=== PATIENT | female | born 1990 | race Caucasian/White ===

== ENCOUNTER 2023-09-15 15:52 | Emergency (ER) | payer BC, SELFPAY ==
--- NOTE | 2023-09-15 16:03 | ED.URI ---
HPI - URI/Sore Throat General Chief Complaint: Upper Respiratory Infection Stated Complaint: sorethroat,bilateral ear pain Time Seen by Provider: 09/15/23 16:03 Source: patient Mode of arrival: ambulatory Limitations: no limitations History of Present Illness HPI Narrative: Opal is a 32-year-old female patient presenting to the clinic today with complaints of sore throat and bilateral ear pain x3 days. Has felt feverish with some chills. Denies any chest pain or shortness of breath. MD elicited complaint: sore throat and nasal congestion Related Data Allergies Allergy/AdvReac Type Severity Reaction Status Date / Time No Known Allergies Allergy Verified 09/15/23 16:30 Review of Systems Review of Systems: Pertinent positives per HPI. Patient denies any rash, headache, visual changes, dizziness, shortness of breath, chest pain, palpitations, nausea, vomiting, diarrhea, constipation, abdominal pain, or any urinary issues. [facility] Family History Family History Grandparent Diabetes mellitus Father Family history of malignant neoplasm Other Family history of throat cancer Social History Social History Smoking status: Never smoker Alcohol intake: current Comments At the time of my signature, I reviewed and agree with the nursing past medical, surgical, social, and family history. There is no relevant family history pertinent to the patient complaint. Exam Narrative: General: Well-developed, well nourished, in no apparent distress Head: Normocephalic, atraumatic Eyes: Pupils equally round and reactive to light bilaterally, EOM intact, sclera and conjunctive clear, no discharge, lids normal Ears: TMs intact and clear, ear canals clear, no drainage, grossly hearing normal. Nose: Nares patent, clear nasal discharge, no inflammation, no sinus tenderness. Mouth: Oral pharynx red with tonsillar enlargement bilaterally without lesions or masses, good dentition, MMM. Neck: Supple, trachea midline, enlargement of anterior cervical nodes, no thyroid masses or goiter palpable. Cardio: Regular rate and rhythm, s1 and s2 normal, no murmur appreciated. Resp: Clear to auscultation bilaterally, no rhonchi, rales, wheezing or rubs Course Course Emergency Course: Portions of this record may have been created with voice recognition software. Level of Care: Express Care Visit Vital Signs Vital signs: Vital signs reviewed MDM - URI/Sore Throat MDM Narrative Medical decision making narrative: At the time of visit patient is resting comfortably on the exam table. Patient appears to be nontoxic. Supportive measures were discussed with the patient and they voiced understanding discharge instructions and agrees to treatment plan. Return precautions reviewed Differential Diagnosis Differential diagnosis: Likely upper respiratory infection, otitis media, sinusitis, viral infection, bronchitis, influenza, pharyngitis and other (COVID) Discharge Plan Discharge Clinical Impression: Acute streptococcal pharyngitis Patient Disposition: Home, Self-Care Condition: Stable Instructions: Antibiotic Form, Strep Throat (ED) Additional Instructions: COVID and influenza testing was negative in the clinic today. Strep test was positive in the clinic today. Take prescription medications only as prescribed-amoxicillin Change your toothbrush in 24 hours after initiation of the antibiotics Increase fluids and stay well hydrated Tylenol/motrin for pain/fever Flonase and OTC antihistamines as directed Vicks vapor rub to open sinuses Sinus rinses for congestion Cepacol spray, cough drops, throat lozenges, warm tea with honey/lemon, gargle salt water to soothe throat BRAT diet for diarrhea Clear liquids x 24 hours then advance as tolerated for nausea/vomiting Go to the ED if you d
[2023-09-15 16:28] VITALS: BP 126/61; PULSE 108; RESP 16; TEMP 37.3; O2SAT 100
== END 2023-09-15 16:54 | disposition home or self-care (01) ==
PROVIDERS: Emergency Provider Nurse Practitioner Family
DX: J02.0 Streptococcal pharyngitis (principal)
CPT/HCPCS: 87426; 87804; 87880; 99213; C9803; G0463

== ENCOUNTER 2024-10-28 19:06 | Emergency (ER) | payer BC, SELFPAY ==
--- OUTSIDE RECORDS SUMMARY | 2024-10-28 19:10 | XMS_ITS | Clinical Summary ---
Author Organization [facility] Address [facility] [place] [address] Care Team Providers Care Occupational Therapy Department Chair Name Role Phone Nessa Andrade DIRECT SUPPORT PROFESSIONAL Primary Care Provider [phone] Allergies No known active allergies Medications azelastine (ASTELIN) 0.1 % nasal sprayIndications:Ac redding allergic rhinitis 1 spray by Nasal route 2 (two) times daily. 30 mL 4 Active fluticasone propionate (FLONASE) 50 MCG/ACT nasal sprayIndications:Na vahid congestion 2 sprays by Nasal route daily. 16 g 4 Active ondansetron (ZOFRAN-ODT) 4 MG disintegrating tabletIndications:N ausea and vomiting, unspecified vomiting type Take 1 tablet (4 mg total) by mouth 4 (four) times daily as needed for Nausea. 20 tablet 4 Active Ashwagandha 300 MG Tab Active Active Problems Problem Noted Date Diagnosed Date Allergic asthma, mild intermittent, uncomplicate d ([facility]) 03/11/2019 Assessment & Plan (03/11/2019 5:01 PM CDT): Reports is controlled with current medication regimen. She is not needing to use her rescue inhaler anymore. She is encouraged to keep on hand however if she is outdoors and begins to develop an asthma exacerbation. She is to avoid any potential asthma triggers. Follow up if needing to use rescue inhaler more than twice a week. Allergic rhinitis 02/05/2019 Assessment & Plan (03/11/2019 4:56 PM CDT): Controlled with Flonase and otc antihistamine. Avoid triggers. Resolved Problems Problem Noted Date Diagnosed Date Resolved Date Asthma (HHS/HCC) 02/05/2019 03/11/2019 Immunizations Name Administration Dates Next Due Tdap (Generic) 06/11/2018 Family History Medical History Relation Comments Hypertension Father Fatty Liver Mother Relation Status Comments Father Alive Mother Alive Social History Tobacco Use Types Packs/Day Years Used Date Smoking Tobacco: Never Smokeless Tobacco: Never Tobacco Cessation:Counseling Given: No Alcohol Use Standard Drinks/Week Comments Yes 0 (1 standard drink = 0.6 oz pur e alcohol) socially PHQ-2 Answer Date Recorded Patient Health Questionnaire-2 Score 2 01/25/2024 Comments No Sex and Gender Information Value Date Recorded Sex Assigned at Not on file Legal Sex Female 8:06 PM CDT Gender Identity Not on file Sexual Orientation Not on file Last Filed Vital Signs Vital Sign Reading Time Taken Comments Blood Pressure 140/76 01/25/2024 10:19 AM CDT Pulse 92 01/25/2024 10:19 AM CDT Temperature 36.9 C (98.5 F) 01/25/2024 10:19 AM CDT Respiratory Rate 18 01/25/2024 10:19 AM CDT Oxygen Saturation 98% 01/25/2024 10:19 AM CDT Inhaled Oxygen Concentration - - Weight 118.6 kg (261 lb 8 oz) 01/25/2024 10:19 A M CDT Height 172.7 cm (5' 8 ) 01/25/2024 10:19 AM CDT Body Mass Index 39.76 01/25/2024 10:19 AM CDT Plan of Treatment Health Maintenance Due Date Last Done Comments Cervical Cancer Screening Pa p Smear (Age 30 to 64) Every 3 Years 1991 Annual Physical 1994 Pneumococcal Vaccine: Pediatrics (0 to 5 Years) and At-Risk Patients (6 to 64 Years) (1 of 2 - PCV) 1997 Hepatitis B Vaccines (1 of 3 - 19+ 3-dose series) 2010 Cervical Cancer Screening Pa p with HPV Testing (Age 30 to 64) Every 5 Years 2021 Cervical Cancer Screening with HPV 2021 COVID-19 Vaccine (2023-2 5 season) 2024 Influenza Adult (#1) 2024 PHQ-2 (Physician [place]) 09/10/2024 01/25/2024 PHQ-2 (Physician [place]) 01/24/2025 01/25/2024 DTaP, Tdap and Td Vaccines ( 3 - Td or Tdap) 08/30/2028 08/30/2018, 06/11/2018, 06/11/2018 Hepatitis C 09/18/2053 Postponed from 2009 (Patient Refused) HPV Vaccines Aged Out No longer eligi ble based on patient's age to complete this topic Meningococcal B Vaccine Aged Out No l onger eligible based on patient's age to complete this topic Meningococcal Vaccine Aged Out No jenn helena eligible based on patient's age to complete this topic RSV Immunizations Under 20 Months Aged Out No longer eligible b ased on patient's age to complete this topic Insurance Care Teams Occupational Therapy Department Chair Relationship Specialty Start Date End Date Nessa Andrade NP [address] [place] [address] PCP - General NURSE PRACTITIONER 03/27/24
[2024-10-28 19:14] VITALS: BP 126/71; PULSE 102; RESP 16; TEMP 36.4; O2SAT 99
--- NOTE | 2024-10-28 19:23 | ED_ITS ---
HPI - General Adult General Chief complaint: Upper Respiratory Infection Stated complaint: cough History of Present Illness HPI narrative: Opal Vargas Is a 34-year-old female who presents with complaints of having a URI symptoms that started about 10 days ago and she was trying to go back to work today but still not feeling better. She states that she still has a cough and feels like she is getting worse. She denies any chest pain. Satting 99 % on room air she is concerned that she might be getting a secondary infection from her upper respiratory infection she had for 10 days Related Data Allergies Allergy/AdvReac Type Severity Reaction Status Date / Time No Known Allergies Allergy Verified 09/15/23 16:30 Review of Systems Review of Systems: All systems reviewed & are unremarkable except as noted in HPI and below PMFSH Family History Family History Grandparent Diabetes mellitus Father Family history of malignant neoplasm Other Family history of throat cancer Social History Social History Smoking status: Never smoker Alcohol intake: current Exam Narrative: GENERAL: Well-appearing, well-nourished, and in no acute distress. HEAD: Normocephalic, atraumatic. EYES: PERRLA and EOMI. ENT: Nares clear, no rhinorrhea or epistaxis. Mucous membranes moist. Oropharynx without tonsillar hypertrophy exudate or other lesions. Bilateral TMs pearly ram nonbulging NECK: Supple. No adenopathy or masses. No carotid bruits or JVD CHEST: Clear to diminished in the lower lobes with auscultation. No respiratory distress. No wheezes rales or rhonchi HEART: Regular rate and rhythm. No murmur heard. Normal peripheral pulses. ABDOMEN: Soft, nontender, nondistended, normal active bowel sounds. EXTREMITIES: Normal range of motion. No edema. SKIN: Warm, dry, no rash. NEURO: No focal deficits. Alert and oriented x3. PSYCH: Normal mood and affect. Course Course Level of Care: Express Care Visit Vital Signs Vital signs: Vital Signs Temperature 36.4 C 10/28/24 19:14 Pulse Rate 102 H 10/28/24 19:14 Respiratory Rate 16 10/28/24 19:14 Blood Pressure 126/71 10/28/24 19:14 Pulse Oximetry 99 10/28/24 19:14 Oxygen Delivery Room Air 10/28/24 19:14 Temperature 36.4 C 10/28/24 19:14 Pulse Rate 102 H 10/28/24 19:14 Respiratory Rate 16 10/28/24 19:14 Blood Pressure 126/71 10/28/24 19:14 Pulse Oximetry 99 10/28/24 19:14 Oxygen Delivery Room Air 10/28/24 19:14 Medical Decision Making MDM Narrative Medical decision making narrative: ED COURSE AND MEDICAL DECISION MAKING: This 34 year old patient presents with symptoms most suggestive of respiratory tract infection. Lungs are clear with diminished in the bases bilaterally without any respiratory distress or accessory muscle use. Concern for bronchitis with the ongoing cough she has been having for 10 days Sating 99% on RA Will d/c home with azithromycin Pt is discharged home in stable condition with expectant management. Return precautions were provided. Procedures: Pulse oximetry interpretation - not hypoxic. Review of medical records. DISPOSITION: Discharged home in stable condition. IMPRESSION: Bronchitis Medical Records Medical records reviewed: Yes I reviewed the external patient's medical records. Vital Signs Vital Signs: Vital Signs Temperature 36.4 C 10/28/24 19:14 Pulse Rate 102 H 10/28/24 19:14 Respiratory Rate 16 10/28/24 19:14 Blood Pressure 126/71 10/28/24 19:14 Pulse Oximetry 99 10/28/24 19:14 Oxygen Delivery Room Air 10/28/24 19:14 Temperature 36.4 C 10/28/24 19:14 Pulse Rate 102 H 10/28/24 19:14 Respiratory Rate 16 10/28/24 19:14 Blood Pressure 126/71 10/28/24 19:14 Pulse Oximetry 99 10/28/24 19:14 Oxygen Delivery Room Air 10/28/24 19:14 Vitals reviewed by me Lab Data Lab results reviewed: Yes I reviewed the patient's lab results. Discharge Plan Discharge Clinical Impression: Bronchitis Patient Disposition: Home, Self-Care Condition: Stable Instructions: Antibiotic Form Patient Language: Greek Prescriptions: New azithromycin 250 mg tablet See Rx Instructions .ROUTE .COMPLEX Qty: 6 0RF Rx Instructions: For 250 mg dose pack: take 500 mg today (day 1), then 250 mg for 4 days (days 2-5) No Action amoxicillin 500 mg capsule 500 mg PO Q12H 10 Days Qty: 20 0RF Follow-up/Referrals: PHYSICIAN,ASSISTANT PROFESSOR OF GEOGRAPHY [Primary Care Provider] - Stand Alone Forms: Work/School Release IP Time of Disposition: 19:28
== END 2024-10-28 19:43 | disposition home or self-care (01) ==
PROVIDERS: Emergency Provider Nurse Practitioner Family
DX: J40 Bronchitis, not specified as acute or chronic (principal)
CPT/HCPCS: 99213; G0463

== ENCOUNTER 2025-05-27 13:23 | Emergency (ER) | payer BC, SELFPAY ==
[2025-05-27 13:30] VITALS: BP 126/79; PULSE 105; RESP 16; TEMP 36.3; O2SAT 100
--- OUTSIDE RECORDS SUMMARY | 2025-05-27 13:43 | XMS_ITS | Clinical Summary ---
Author Organization [facility] Address [facility] [place] [address] Care Team Providers Care Quality Internship Name Role Phone Unavailable Primary Care Provider Unavailabl e Allergies No known active allergies Medications azelastine (ASTELIN) 0.1 % nasal sprayIndications:Ac bal allergic rhinitis 1 spray by Nasal route [...] Date Allergic asthma, mild intermittent, uncomplicate d ([facility]) 03/11/2019 Assessment & Plan (03/11/2019 5:01 PM [...] Resolved Date Asthma (HHS/HCC) 02/05/2019 03/11/2019 Immunizations Immunization Administration Dates Next Due Tdap (Generic) 06/11/2018 [...] A M CDT Height 172.7 cm (5' 8) 01/25/2024 10:19 AM CDT Body Mass Index 39.76 01/25/2024 10:19 AM CDT Plan of Treatment Health Maintenance Due Date Last Done Comments Cervical Cancer Screening Pa p Smear (Age 30 to 64) Every 3 Years 1991 Annual Physical 1994 Hepatitis B Vaccines (1 of 3 - 19+ 3-dose series) 2010 Pneumococcal Vaccine: Pediatrics (0 to 5 Years) and At-Risk Patients (6 to 49 Years) (1 of 2 - PCV) 2010 HPV Vaccines (1 - 3-dose SCD M series) 2018 Cervical Cancer Screening Pa p with HPV Testing (Age 30 to 64) Every 5 Years 2021 Cervical Cancer Screening with HPV 2021 PHQ-2 (Physician [place]) 09/10/2024 01/25/2024 COVID-19 Vaccine (1 - 2023-2 5 season) 2025 DTaP, Tdap and Td Vaccines ( 3 - Td or Tdap) 08/30/2028 08/30/2018, 06/11/2018, 06/11/2018 Hepatitis C 09/18/2053 Postponed from 2009 (Patient Refused) Meningococcal B Vaccine Aged Out No l onger eligible based on patient's age to complete this topic Meningococcal Vaccine Aged Out No jenn helena eligible based on patient's age to complete this topic RSV Immunizations Under 20 Months Aged Out No longer eligible b ased on patient's age to complete this topic Insurance [facility]
--- NOTE | 2025-05-27 14:05 | ED.WOUNDLAC ---
HPI - Wound/Laceration General Chief Complaint: Wound/Laceration Stated Complaint: infected toe Time Seen by Provider: 05/27/25 13:50 Source: patient and RN notes reviewed Mode of arrival: ambulatory Limitations: no limitations History of Present Illness HPI narrative: 34-year-old female presents Express Care complaining of right great toe redness and swelling, drainage stents last week. Patient says she recently had a pedicure performed and the person performing it attempted to remove the ingrown toenail to her right great toe. His injury reports redness swelling pain, and purulence drainage coming from her right great toe. Patient denies any injuries, fevers, nausea vomiting body aches, chills, or any other symptoms. Patient has not tried any [id number] help symptoms. Patient denies any significant past medical history. Related Data Home Medications ?Medication ?Instructions ?Recorded ?Confirmed ?Last Taken ?Type etonogestrel 68 mg subdermal 1 implant subdermal ONCE 05/27/25 05/27/25 Unknown History implant (Nexplanon) Allergies Allergy/AdvReac Type Severity Reaction Status Date / Time No Known Allergies Allergy Verified 05/27/25 13:35 Review of Systems Review of Systems: CONSTITUTIONAL: Denies fever, chills, or sweats. EYES: Denies visual changes, redness, or discharge. ENT: Denies rhinorrhea, congestion, sore throat, or otalgia. CARDIOVASCULAR: Denies chest pain, palpitations, or edema. RESPIRATORY: Denies cough or dyspnea. GASTROINTESTINAL: Denies abdominal pain, nausea, vomiting, or diarrhea. GENITOURINARY: Denies dysuria or hematuria. SKIN: Denies rash or itching. Positive for redness and swelling. MUSCULOSKELETAL: Denies back pain, joint pain, or myalgia. NEUROLOGIC: Denies headache, numbness, or weakness. PSYCHIATRIC: Denies anxiety or depression. All other systems reviewed are negative, except as documented in HPI. [facility] Family History Family History Grandparent Diabetes mellitus Father Family history of malignant neoplasm Other Family history of throat cancer Social History Social History Smoking status: Never smoker Alcohol intake: current Comments At the time of my signature, I reviewed and agree with the nursing past medical, surgical, social, and family history. There is no relevant family history pertinent to the patient complaint. Exam Narrative: GENERAL: This is a well-nourished, well-developed adult, in no apparent distress. They are non ill-appearing, nontoxic appearing. HEAD: normocephalic, atraumatic. EYES: Sclera clear/white. Conjunctiva normal. Vision is grossly intact. Extraocular movements intact EARS: External ears normal, Hearing grossly intact. NOSE: External nose normal THROAT: Mucous membranes moist, NECK: Neck supple, CARDIOVASCULAR: Regular rate and rhythm RESPIRATORY: Respiratory rate normal, respiratory effort nonlabored, no respiratory distress SKIN: warm, Dry, intact with no suspicious lesions or rash, good texture and turgor. NEURO: awake, alert, and oriented to person, place and time. There were no obvious focal neurologic abnormalities. EXTREMITIES: Right great toe: Paronychia present to the lateral toe. purulent drainage present. Is actively draining. It is tender to palpate. Is erythematous. Nail bed and nail plate are intact. Refill less than 2 seconds. Normal range of motion of great toe. Neurovascular status intact distally. Normal sensation. No area of fluctuance or induration. Course Course Emergency Course: Portions of this record may have been created with voice recognition software Level of Care: Express Care Visit Vital Signs Vital signs: Vital Signs Temperature 97.3 F L 05/27/25 13:30 Pulse Rate 105 H 05/27/25 13:30 Respiratory Rate 16 05/27/25 13:30 Blood Pressure 126/79 05/27/25 13:30 Pulse Oximetry 100 05/27/25 13:30 Oxygen Delivery Room Air 05/27/25 13:30 Temperature 97.3 F L 05/27/25 13:30 Pulse Rate 105 H 05/27/25 13:30 Respiratory Rate 16 05/27/25 13:30 Blood Pressure 126/79 05/27/25 13:30 Pulse Oximetry 100 05/27/25 13:30 Oxygen Delivery Room Air 05/27/25 13:30 Reviewed MDM - Wound/Laceration MDM Narrative Medical decision making narrative: Patient has paronychia that is actively draining. Does not appear to be abscessed. No area of fluctuance noted. Will go ahead and treat her with cephalexin along with Kenalog cream. Will refer patient to podiatry. Patient him referral to PCP as well. Discussed physical exam findings. Advised supportive measures and signs/symptoms to go to the ER. Pt is appropriate for outpt treatment and f/u. Differential Diagnosis Differential diagnosis: Likely other (Paronychia, paronychia abscess, ingrown toenail, cellulitis) Critical Care Time Critical Care Time Critical Care Time: No Discharge Plan Discharge Clinical Impression: Paronychia Patient Disposition: Home Condition: Stable Instructions: Antibiotic Form, Paronychia (ED) Additional Instructions: Take the cephalexin as directed. Soak the affected foot warm soapy water for 10-15 minutes twice a day than apply the steroid cream to the affected toe for 2 weeks. Cover with a Band-Aid if it is actively draining. Follow with PCP podiatry in 3-5 days. Go to the ER if he developed worsening redness, swelling, pain, drainage, fevers, and nausea, vomiting, body aches, chills, or any serious concerns. Patient Language: Faroese Prescriptions: New triamcinolone acetonide 0.5 % ointment 1 applic topical BID 14 Days Qty: 15 0RF Rx Instructions: Wash the affected foot daily with warm soapy water for 10-15 minutes twice a day then apply the steroid appointment to the right great toe for maximum of 2 weeks. cephalexin 500 mg capsule 500 mg PO Q6H 7 Days Qty: 28 0RF No Action Nexplanon 68 mg implant 1 implant subdermal ONCE Rx Instructions: as a single dose Follow-up/Referrals: [facility] [Provider Group, Podiatry] Rudy Victoria DPM [Physician, Podiatry] Tana Restrepo DO [Physician, Family Practice] - 3 Days Referral Note: new patient PHYSICIAN,PROJECT ASST [Primary Care Provider, Internal Medicine] Time of Disposition: 14:03
== END 2025-05-27 14:09 | disposition home or self-care (01) ==
DX: L03.031 Cellulitis of right toe (principal); B95.62 Methicillin resistant Staphylococcus aureus infection as the cause of diseases classified elsewhere
CPT/HCPCS: 87070; 87147; 87186; 99213; G0463